=== PATIENT | female | born 1945 | race Caucasian/White ===

== ENCOUNTER 2017-02-01 10:21 | Inpatient (IN) | payer MEDICARE, BC ==
[2017-01-31 20:15] LABS: BASOPHILS 1.7 %; BASOPHILS ABSOLUTE 0.08 10/3/uL (0.0-0.16); EOSINOPHILS 7.1 %; EOSINOPHILS ABSOLUTE 0.33 10/3/uL (0.0-0.53); HEMATOCRIT 37.4 % (36.0-48.0); HEMOGLOBIN 12.1 g/dL (12.0-16.0); IMMATURE GRANULOCYTES 0.2 %; IMMATURE GRANULOCYTES ABSOLUTE 0.01 10/3/uL (0.0-0.11); LYMPHOCYTES 21.7 %; LYMPHOCYTES ABSOLUTE 1.01 10/3/uL (0.67-4.30); MEAN CORPUS HGB CONC 32.4 g/dL (32.0-36.0); MEAN CORPUSCULAR HEMOGLOB 28.8 pg (26.0-34.0); MEAN PLATELET VOLUME 10.7 fL (9.2-13.0); MONOCYTES ABSOLUTE 0.42 10/3/uL (0.21-1.20); NEUTROPHILS 60.3 %; NEUTROPHILS ABSOLUTE 2.81 10/3/uL (2.02-8.40); PLATELET COUNT 222 10/3/uL (150-400); RBC DISTRIBUTION WIDTH 16.3 % (12.0-16.0); WHITE BLOOD CELLS 4.7 10/3/uL (4.5-10.5)
[2017-01-31 20:20] LABS: INTERNATIONAL NORMAL RATI 1.1 UNITS (-); PROTIME (NOT ORD) 13.9 SEC (12.0-14.5)
[2017-01-31 20:22] LABS: MANUAL DIFF NO %
[2017-01-31 20:29] LABS: ASCORBIC ACID (UR NOT ORDER) NEG (NEG); BILIRUBIN, URINE NEGATIVE (NEG); KETONE, URINE NEGATIVE (NEG); LEUKOCYTE ESTERASE(NOT OR SMALL (NEG); WBC (NOT ORDERED) (RFLEX) 9 (0-5)
[2017-01-31 20:42] LABS: A/G RATIO 1.5 (0.7-1.9); ALBUMIN 4.4 G/DL (3.5-5.0); BUN (BLOOD UREA NITROGEN) 18 MG/DL (6-23); CALCIUM, SERUM 9.1 MG/DL (8.5-10.4); CHLORIDE, SERUM 102 MMOL/L (96-112); CO2 (CARBON DIOXIDE) 32 MMOL/L (24-34); CREATININE 1.07 MG/DL (0.55-1.02); GFR AFRICAN AMERICAN 61 ML/MIN (>=60); GFR NON AFRICAN AMERICAN 53 ML/MIN (>=60); GLOBULIN 2.9 G/DL (2.5-4.1); SGOT(AST) 20 U/L (5-40); SGPT(ALT) 23 U/L (5-65); SODIUM, SERUM 142 MMOL/L (135-148); TOTAL BILIRUBIN 0.4 MG/DL (0-1.2); TOTAL PROTEIN 7.3 G/DL (6.0-8.5)
[2017-01-31 20:43] LABS: ALKALINE PHOSPHATASE 111 U/L (45-117); GLUCOSE, SERUM 92 MG/DL (60-99)
--- NOTE | ~2017-02-01 | DS ---
Discharge Summary [facility] [address] [place]. [address] NAME: TONI ESPITIA : 47 STATUS : DIS IN PAT#: [id number] AGE: 71 ADM/REG DATE : 02/01/17 MR#: [id number] REPORT SERV DATE: 02/14/17 DICTATED BY: ELÍAS GERARD DATE: 02/11/17 REPORT STATUS : Draft TRANSCRIBED BY: BERENICE DATE: 02/11/17 Data Collection from hospitalization DISCHARGE DIAGNOSES: 1. Severe right knee degenerative joint disease. 2. Hypertension. 3. History of breast cancer. 4. Osteoarthritis. 5. Depression. 6. Dementia. 7. Essential tremors. CONSULTATIONS: None. PROCEDURES PERFORMED: Right posterior stabilized total knee replacement, cemented, 02/01/2017. PATHOLOGY: Bone and soft tissue, right knee joint arthroplasty-degenerative joint disease with eburnation. DISCHARGE MEDICATIONS: Arimidex 1 mg every morning, Abilify 2 mg every morning, Ecotrin 325 mg daily, Tenormin 100 mg every morning, Wellbutrin XL 150 mg every morning, vitamin D3 5000 units daily, Colace 100 mg twice a day, Zetia 10 mg every morning, ferrous sulfate 300 mg with breakfast and supper, Lasix 40 mg twice a day, Mag-Ox 400 mg twice a day, Theragran tablets one tablet with breakfast, Mycostatin one application topically twice a day, Ditropan 5 mg every morning, Prilosec 40 mg every morning, K-Dur 20 mEq every morning, Mysoline 250 mg at bedtime, Exelon 4.6 mg topically daily as instructed, Zoloft 200 mg every morning, Coumadin as instructed, Ultram 50 mg every six hours as needed, Tylenol with Codeine one tablet at bedtime as needed, Mylanta 30 mL as needed, Dulcolax 15 mg as needed, Lomotil 2.5 mg four times a day as needed, milk of magnesia 30 mL as needed, Zofran 4 mg every six hours as needed, Percocet 5/325 two tablets every four hours as needed, MiraLAX powder one packet twice a day as needed, Klonopin 0.5 mg three times a day as needed, Crestor 40 mg every morning. CONDITION AT DISCHARGE: Stable. DISPOSITION: The patient was discharged to [facility] on a regular diet with activities as instructed. She would follow up with Manolo David, 02/15/2017. HOSPITAL COURSE: This is a 71-year-old female, who had complained of [id number]-md-[id number] right knee pain, symptomatic for about three weeks. The approximate date of onset was two to three years previously. She said the pain was due from a fall three weeks prior to this admission when she twisted her right knee. The location of the knee pain was medial-lateral across the patella, behind the knee, and patellar tubercle down the right leg. X-rays had shown severe right knee degenerative joint disease. Treatment options were discussed and it was elected to proceed with surgical intervention. She was admitted to the hospital at this time for further evaluation and treatment. Discharge Summary [address] [place]. [address] NAME: TONI ESPITIA : 47 STATUS : DIS IN PAT#: [id number] AGE: 71 ADM/REG DATE : 02/01/17 MR#: [id number] REPORT SERV DATE: 02/14/17 DICTATED BY: ELÍAS GERARD DATE: 02/11/17 REPORT STATUS : Draft TRANSCRIBED BY: BERENICE DATE: 02/11/17 Upon admission, she was taken to the operating room, where she underwent the above-mentioned procedure. She tolerated this well and there were no complications. On postop day #1, she was comfortable. She had normal distal pulses. Her dressings were clean, dry, and intact. Over the next couple of days, she continued to progress. LIZETH hose were in place. Discharge planning was performed. She was evaluated by Occupational Therapy. On 02/04/2017, she was up sitting in a bedside chair. She was alert and cooperative. Discharge instructions were given. Due to her improved and stable condition, she was discharged to [facility] with the above-stated instructions. Information collected by: Merari Card I submit the above information as my discharge summary. MAMTA/BERENICE Marley Gerard M.D. / [id number] CC: Adrienne Rudolph MD [facility]
--- NOTE | ~2017-02-01 | OP ---
Record Of Operation [facility] [address] [place]. [address] NAME: TONI ESPITIA : 47 STATUS : ADM IN PAT#: [id number] AGE: 71 ADM/REG DATE : 02/01/17 MR#: [id number] REPORT SERV DATE: 02/03/17 DICTATED BY: ELÍAS GERARD DATE: 02/03/17 REPORT STATUS : Draft TRANSCRIBED BY: MODAnu DATE: 02/03/17 DATE OF PROCEDURE: 02/01/2017 PREOPERATIVE DIAGNOSIS: Severe right knee degenerative joint disease. POSTOPERATIVE DIAGNOSIS: Severe right knee degenerative joint disease. OPERATION: Right posterior stabilized total knee replacement, cemented. SIDE: Right SIZE: See chart. ANESTHESIA: See chart. ESTIMATED BLOOD LOSS: About 10 mL. TOURNIQUET TIME: Approximately 1 hour and 10 minutes. COMPLICATIONS: None. SPECIMENS: Articular surfaces. PROCEDURE: The patient was appropriately identified and marked. The operative side agreed with the consent form and it was checked by all members of the surgical team. The patient was taken to the operating room and anesthesia was induced per the anesthesiologist. The patient was carefully transferred to the operating table without incident. The patient received appropriate prophylactic antibiotics and a Sullivan catheter was placed in the standard sterile technique. The patient was then carefully positioned, padded, prepped and draped in the normal sterile fashion. The operative leg had been appropriately identified and checked by all members of the operating team against the consent form and found to be the correct limb. The patient's lower extremity was then exsanguinated with an Eros wrap and a tourniquet was inflated to 350 mm/Hg. Sharp dissection was carried out through a straight midline longitudinal incision and electrocautery through the fat. Sharp quad splitting approach was carried out between about the medial 10 percent of the tendon and the lateral 90 percent of the tendon and down around the medial aspect of the patella and then 1 cm medial to the tibial tubercle. The patella was carefully everted and the posterior fat pad was excised and gentle MCL elevation was carried out off the proximal medial tibia subperiosteally. IM guide was placed in the distal femur after using the appropriate drill. The distal femoral cutting guide was held with 2 pins and the distal cut made. Meniscal fragments and the ACL and the PCL were excised with electrocautery, carefully staying anterior to the posterior fat pad. The proximal tibial alignment guide was set appropriately and the proximal tibial cut made. Spacer block verified full extension with excellent mediolateral balance. Sizing guide was used to place 2 drill holes in the distal femur and the four-in-one cutting block was then placed, impacted and checked Record Of Operation [facility] [address] [place]. [address] NAME: TONI ESPITIA : 47 STATUS : ADM IN PAT#: [id number] AGE: 71 ADM/REG DATE : 02/01/17 MR#: [id number] REPORT SERV DATE: 02/03/17 DICTATED BY: ELÍAS GERARD DATE: 02/03/17 REPORT STATUS : Draft TRANSCRIBED BY: MODL DATE: 02/03/17 to be sure it would not notch with an parker wing and it was held with 2 pins. The anterior cut, posterior cut, anterior chamfer and posterior chamfer cuts were made. The pins were removed and the block was removed. A posterior release was carried out with a curved 3/4 inch osteotome staying right on the bone posteriorly. The box-cut guide was then placed, impacted and held with 2 pins and a reciprocating saw was used to cut out the box. With the trial components in place, there was excellent medial/lateral balance. The patella was then measured with a caliper, cut first with an oscillating saw and then reamed with a patella reamer. With the trial patella in place, there was excellent patellar tracking. Rotation was marked on the tibia and the tibia prepared with a drill and stamp chisel. All surfaces were then copiously irrigated with pulsatile lavage, carefully dried and then vacuum-mixed cement was pressurized with a cement gun in a doughy phase. The tibial component was placed, impacted and excess cement was removed. The cement was then pressurized in the femur and placed on the posterior runners of the femoral component, which was placed, impacted and excess cement removed and the knee was brought out into extension on a trial spacer. The cement was then pressurized in the patella. Patellar component was then placed, clamped and excess cement was removed. Once all cement was hardened, the knee was taken through range of motion. Further extruded cement was removed with a small osteotome. Then based on the trial inserts, we decided on the actual insert, which was placed in the standard fashion and held with a locking mechanism. The knee was then copiously irrigated and then closed in a layered fashion over a medium Hemovac drain superolaterally with interrupted #1 in the deep fascia, 2-0 subcutaneous and ellis in the skin. The wounds were dressed sterilely and the tourniquet was deflated. The patient was then awakened and taken to the postanesthesia care unit without incident. All counts were correct at the end of the case. WTB/MODL Marley Gerard M.D. / [id number] CC: Adrienne Rudolph MD
[~2017-02-01 10:21] MED LIST: ABILIFY2 PO; AMILOR/HCTZ1 TAB PO; AMILORID5B PO; ARIMIDEX1 PO; ASAB PO; ATEN100 PO; COZ50 PO; COZAAR100 MG PO; CRESTOR40 MG PO; DITRO5 PO; EXELON4.6T TOP; IMDUR30 PO; INTEGRA; K500 PO; KDUR20 PO; KLONO5 PO; L40 PO; LIPITOR80 MG PO; LOM PO; MAGOX4 PO; MAPAP PO; MOBIC7.5 PO; MYCOSCROI TOP; PRILOSEC40 MG PO; PRIM250 PO; T3 PO; ULTRAM50 PO; VITAMIN D31000 UNIT PO; WELLXL150 PO; ZETIA PO; ZOFRAN4 PO; ZOL100 PO
[2017-02-02 04:39] LABS: HEMOGLOBIN 11.2 g/dL (12.0-16.0)
[2017-02-02 04:45] LABS: BUN (BLOOD UREA NITROGEN) 21 MG/DL (6-23); CALCIUM, SERUM 8.8 MG/DL (8.5-10.4); CHLORIDE, SERUM 99 MMOL/L (96-112); CO2 (CARBON DIOXIDE) 31 MMOL/L (24-34); CREATININE 1.11 MG/DL (0.55-1.02); GFR AFRICAN AMERICAN 58 ML/MIN (>=60); GFR NON AFRICAN AMERICAN 50 ML/MIN (>=60); GLUCOSE, SERUM 100 MG/DL (60-99); POTASSIUM, SERUM 4.2 MMOL/L (3.5-5.3); SODIUM, SERUM 137 MMOL/L (135-148)
[2017-02-02 04:50] LABS: INTERNATIONAL NORMAL RATI 1.2 UNITS (-); PROTIME (NOT ORD) 15.2 SEC (12.0-14.5)
[2017-02-03 05:24] LABS: HEMOGLOBIN 9.3 g/dL (12.0-16.0)
[2017-02-03 05:27] LABS: INTERNATIONAL NORMAL RATI 1.4 UNITS (-); PROTIME (NOT ORD) 16.7 SEC (12.0-14.5)
[2017-02-03 05:38] LABS: HEMATOCRIT 27.2 % (36.0-48.0)
[2017-02-04 05:18] LABS: HEMATOCRIT 27.7 % (36.0-48.0); HEMOGLOBIN 9.3 g/dL (12.0-16.0)
[2017-02-04 05:22] LABS: INTERNATIONAL NORMAL RATI 1.5 UNITS (-); PROTIME (NOT ORD) 17.9 SEC (12.0-14.5)
== END 2017-02-04 16:04 | DRG 470 ==
LOC: SDC/OF 10:21 → PACU 16:06 → 3SO 18:07
PROVIDERS: Specialist
PROC: 0SRC0J9 Replacement of Right Knee Joint with Synthetic Substitute, Cemented, Open Approach (ICD-10-PCS; principal; 2017-02-01 13:00)
DX: M17.11 Unilateral primary osteoarthritis, right knee (principal); F03.90 Unspecified dementia, unspecified severity, without behavioral disturbance, psychotic disturbance, mood disturbance, and anxiety; N39.0 Urinary tract infection, site not specified; I10 Essential (primary) hypertension; E78.5 Hyperlipidemia, unspecified; K21.9 Gastro-esophageal reflux disease without esophagitis; F32.9 Major depressive disorder, single episode, unspecified; F41.9 Anxiety disorder, unspecified
CPT/HCPCS: 36415; 71020; 80048; 80053; 81001; 85014; 85018; 85025; 85610; 87077; 87086; 87186; 87641; 88305; 88311; 93005; 97110-GP; 97116-GP; 97162-GP; 97165-GO; 97530-GP; 97535-GO; A9270-GY; C1776; G8987-CK-GO; G8988-CJ-GO; J0690; J1170; J1885; J2250; J2274; J2405; J2795; J3010